=== PATIENT | female | born 1980 | race Two or more races ===

== ENCOUNTER 2017-01-23 14:04 | Emergency (ER) | payer OTHER ==
[~2017-01-23] VITALS: Ht 154.9 cm; Wt 43.1 kg
[2017-01-23] MEDS ORDERED: ZIPR80CA2 PO (14:21)
[2017-01-23] MEDS ORDERED: GABA600T PO (14:21)
[2017-01-23] MEDS ORDERED: OXCA600T5 PO (14:21)
[2017-01-23] MEDS ORDERED: ISOT10CA PO (14:21)
[2017-01-23] MEDS ORDERED: DIVA500T2 PO (14:21)
[2017-01-23] MEDS ORDERED: ONDANSETRON 4 MG/2 ML VIAL IV ONE ×2 (14:45→16:30)
[2017-01-23] MEDS ORDERED: IV NORMAL SALINE 1000 ML BAG IV ONE ×2 (14:45→16:30)
--- NOTE | 2017-01-23 14:58 | NUR ---
pt is in room #2b. dr avelar evaluated the pt.
[2017-01-23] MEDS ORDERED: ONDANSETRON 4 MG/2 ML VIAL ONE ×2 (15:06→16:54)
[2017-01-23 15:12] LABS: BASOPHILS # (AUTO) 0.1 K/uL (0.0-8.0); BASOPHILS % (AUTO) 0.6 % (0.0-2.0); EOSINOPHILS % (AUTO) 0.2 % (0.0-7.0); HEMATOCRIT 42.2 % (37-47); HEMOGLOBIN 14.5 G/DL (12.0-16.0); LYMPHOCYTES # (AUTO) 1.7 K/UL (0.8-4.8); LYMPHOCYTES % (AUTO) 14.5 % (20.5-51.5); MEAN CORPUSCULAR HEMOGLOBIN 32.1 UUG (27.0-31.0); MEAN CORPUSCULAR HGB CONC 35 g/dL (32.0-37.0); MEAN CORPUSCULAR VOLUME 93.3 FL (81.0-99.0); MONOCYTES # (AUTO) 0.5 K/UL (0.1-1.30); MONOCYTES % (AUTO) 3.8 % (0.0-11.0); NEUTROPHILS # (AUTO) 9.6 K/UL (1.8-8.9); NEUTROPHILS % (AUTO) 80.9 % (38.5-71.5); PLATELET COUNT (AUTO) 199 K/UL (150-450); RED BLOOD CELL COUNT(AUTO) 4.52 MIL/UL (4.2-5.4); WHITE BLOOD COUNT (AUTO) 11.9 K/UL (4.0-11.2)
[2017-01-23 15:13] LABS: CREATININE 0.9 mg/dL (0.6-1.3); POTASSIUM 3.7 mmol/L (3.5-5.1)
[2017-01-23 15:17] LABS: BILIRUBIN,DIRECT 0.2 mg/dL (0.0-0.2); BILIRUBIN,TOTAL 0.8 mg/dL (0.2-1.0); TOTAL PROTEIN, SERUM 8.4 g/dL (6.4-8.2)
[2017-01-23 17:51] VITALS: BP 122/63
--- NOTE | 2017-01-23 17:51 | NUR ---
PT WAS D/C TO HOME. D/C INSTRUCTIONS GIVEN TO THE PT. NO S/S OF ACUTE DISTRESS AT THIS TIME.
== END 2017-01-23 17:52 | disposition home or self-care (01) ==
LOC: ER 14:06
DX: R11.10 Vomiting, unspecified (principal); Z88.1 Allergy status to other antibiotic agents
CPT/HCPCS: 74176; 80048; 80076; 83690; 84703; 85025; 85730; 96361; 96374; 96376; 99285; A4663; J2405 ×2; J7030